=== PATIENT | female | born 1960 | race Caucasian/White ===

== ENCOUNTER 2018-06-02 12:10 | Emergency (ER) | payer OTHER ==
[2018-06-02 13:25] VITALS: BP 147/79
--- NOTE | 2018-06-02 13:52 | UC ---
UC General HPI - HPI Summary HPI Summary: ON 05/29/18, PT WAS PLACED IN A DIFFERENT TYPE OF WORK STATION THAN HER USUAL. 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 BY NOON ON THE SAME DAY SHE NOTED AN ACHE IN HER LOW BACK, L HIP AND L WRIST WHICH SHE DESCRIBES A "STRAIN". SHE TOOK SATURDAY OFF AND HAS BEEN SELF TXING WITH MOTRIN WITH NO RELIEF. - History of Current Complaint Chief Complaint: UCBackPain Stated Complaint: WC-BACK INJURY Time Seen by Provider: 06/02/18 13:31 Hx Obtained From: Patient Hx Last Menstrual Period: N/A Onset/Duration: Gradual Onset Timing: Constant Pain Intensity: 5 Aggravating: MOVEMENT Alleviating: NOTHING Associated Signs & Symptoms: Positive: Other - NO NUMB/WEAK EXTREMITIES. NO BOWEL/BLADDER DYSFUNCTION. NO SADDLE ANESHTESIA.. Negative: Abdominal Pain, Fever - Allergy/Home Medications Allergies/Adverse Reactions: Allergies Allergy/AdvReac Type Severity Reaction Status Date / Time Sulfa (Sulfonamide Allergy Rash Verified 06/02/18 13:23 Antibiotics) PMH/Surg Hx/FS Hx/Imm Hx Cardiovascular History: Hypertension - Surgical History Surgical History: Yes Surgery Procedure, Year, and Place: C SECTIONS X 2 - Family History Known Family History: Positive: Cardiac Disease - parents, Hypertension - parents Negative: Diabetes - Social History Occupation: Employed Full-time Alcohol Use: None Substance Use Type: None Smoking Status (MU): Never Smoked Tobacco Review of Systems All Other Systems Reviewed And Are Negative: Yes Constitutional: Positive: Negative Skin: Positive: Negative Eyes: Positive: Negative ENT: Positive: Negative Respiratory: Positive: Negative Cardiovascular: Positive: Negative Gastrointestinal: Positive: Negative Genitourinary: Positive: Negative Motor: Positive: Negative Neurovascular: Negative: Decreased Sensation Neurological: Negative: Weakness, Paresthesia, Numbness Psychological: Positive: Negative Physical Exam Triage Information Reviewed: Yes Appearance: Well-Appearing Vital Signs: Initial Vital Signs Temp 97.9 F 06/02/18 13:21 Pulse 60 06/02/18 13:21 Resp 14 06/02/18 13:21 BP 147/79 06/02/18 13:21 Pulse Ox 100 06/02/18 13:21 Vital Signs Reviewed: Yes Eyes: Positive: Conjunctiva Clear ENT: Positive: Normal ENT inspection Neck: Positive: Supple, Nontender, No Lymphadenopathy, Other: - C-SPINE NON TENDER Respiratory: Positive: Lungs clear, Normal breath sounds Cardiovascular: Positive: RRR, No Murmur, Pulses Normal Abdomen Description: Positive: Nontender, No Organomegaly, Soft. Negative: Distended, Guarding, Pulsatile Mass Bowel Sounds: Positive: Present Musculoskeletal: Positive: Other: - LUE: no gross deformity, swelling or discoloration. Tender or volar distal forearm /wrist are. The arm and hand have full s/v/m function. LLE: no gross deformity, swelling or discoloration. Mild tenderness over lateral hip. The leg has full s/v/m function and pt has a normal gait. Back: Tender over paraspinal mm in lumbar region with spasm on R. Spine and rest of back is non tender. back has full ROM. 5/5 strength, 2+ reflexes and sensation intactx4. No saddle anesthesia. Negative straight leg raises x2. Neurological: Positive: Alert Psychological: Positive: Age Appropriate Behavior Skin Exam: Normal Skin: Negative: Rashes Course/Dx - Differential Dx - Multi-Symptom Differential Diagnoses: Other - no concern for bony patholgy, acute abdomen, infections or cauda equina. will d/c motrin and start a BIOD nsaid, MM relaxor and occ med f/u. - Diagnoses Provider Diagnosis: Low back pain, Strain of wrist, left, Strain of left hip Discharge - Sign-Out/Discharge Documenting (check all that apply): Patient Departure All imaging exams completed and their final reports reviewed: No Studies - Discharge Plan Condition: Stable Disposition: HOME Prescriptions: Cyclobenzaprine TAB* [Flexeril 10 MG TAB*] 10 mg PO TID PRN #10 tab PRN Reason: Pain - Back Naproxen [Naprosyn 500 mg tab] 500 mg PO BID 5 Days #10 tablet Patient Education Materials: Muscle Strain (DC), Acute Low Back Pain (ED) Forms: *Work Release Referrals: Álvaro Lara MD [Medical Doctor] - 1 Day Additional Instructions: STOP ALL MOTRIN USE. START THE NAPROSYN AT BEDTIME TONIGHT - Billing Disposition and Condition Condition: STABLE Disposition: Home
== END 2018-06-02 14:03 | disposition home or self-care (01) ==
LOC: UCCORT 12:10
DX: S76.012A Strain of muscle, fascia and tendon of left hip, initial encounter (principal); S66.912A Strain of unspecified muscle, fascia and tendon at wrist and hand level, left hand, initial encounter; M54.5 Low back pain; I10 Essential (primary) hypertension; Z88.2 Allergy status to sulfonamides; X58.XXXA Exposure to other specified factors, initial encounter; Y92.9 Unspecified place or not applicable
CPT/HCPCS: 99212; G0463